=== PATIENT | male | born 2005 | race Caucasian/White ===

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

== ENCOUNTER 2023-02-26 19:07 | Emergency (ER) | payer BC, OTHER ==
[~2023-02-26] VITALS: Ht 180.3 cm; Wt 84.1 kg
[2023-02-26] MEDS ORDERED: ONDANSETRON 4MG 2ML VIAL As Ordered ONE (19:32)
[2023-02-26] MEDS ORDERED: KETOROLAC 30 MG/ML 1ML VIAL As Ordered ONE (19:32)
[2023-02-26] MEDS ORDERED: NS 1,000 ML IV ONE (19:35)
[2023-02-26] MEDS ORDERED: KETOROLAC 30 MG/ML 1ML VIAL IV ONE (19:35)
[2023-02-26] MEDS ORDERED: ONDANSETRON 4MG 2ML VIAL IV ONE (19:35)
[2023-02-26] MEDS ORDERED: MORPHINE 4 MG/ML 1ML VIAL IV ONE (19:45)
[2023-02-26 19:46] LABS: BASO % 0.5 % (0.0-1.0); EOS # 0.1 10^3/uL (0.0-0.5); EOS % 0.8 % (0.0-3.0); HEMATOCRIT 43.5 % (42.0-52.0); HEMOGLOBIN 15.8 g/dl (13.5-17.5); LYMPH # 2.4 10^3/uL (1.5-5.0); LYMPH % 31.8 % (24.0-44.0); MEAN CORPUSCULAR HEMOGLOBIN 32.6 pg (27.0-33.0); MEAN CORPUSCULAR HGB CONC 36.3 g/dl (32.0-36.5); MEAN CORPUSCULAR VOLUME 89.9 fl (80.0-96.0); MONO # 0.7 10^3/uL (0.0-0.8); NEUTROPHILS # 4.3 10^3/uL (1.5-8.5); NEUTROPHILS % 57.6 % (36.0-66.0); PLATELET COUNT, AUTOMATED 198 10^3/uL (150-450); RED BLOOD COUNT 4.84 10^6/uL (4.30-6.10); WHITE BLOOD COUNT 7.5 10^3/uL (4.0-10.0)
[2023-02-26 20:29] LABS: LIPASE 26 U/L (12-53)
[2023-02-26 20:31] LABS: ALBUMIN 4.9 G/DL (3.2-5.2); ALKALINE PHOSPHATASE 73 U/L (46-116); ALT/SGPT 67 U/L (7.0-40); AST/SGOT 29 U/L (<34); BILIRUBIN,DIRECT 0.5 MG/DL (<0.4); BILIRUBIN,TOTAL 1.5 MG/DL (0.3-1.2); BLOOD UREA NITROGEN 13 MG/DL (9-23); CALCIUM LEVEL 9.2 MG/DL (8.5-10.1); CARBON DIOXIDE LEVEL 24 MMOL/L (20-31); CHLORIDE LEVEL 105 MMOL/L (98-107); CREATININE FOR GFR 1.01 MG/DL (0.70-1.30); GLUCOSE, FASTING 123 MG/DL (60-100); SODIUM LEVEL 140 MMOL/L (136-145); TOTAL PROTEIN 6.9 G/DL (5.7-8.2)
[2023-02-26 21:30] VITALS: BP 130/78; TEMP 98; O2SAT 97
[2023-02-26] MEDS ORDERED: HYDR-3713 PO (22:28)
[2023-02-26] MEDS ORDERED: FLOM0.4C39 PO (22:28)
[2023-02-26] MEDS ORDERED: ONDA4TAB6 PO (22:28)
[2023-02-26] MEDS ORDERED: ONDANSETRON 4MG ORAL DISINTEGRATING TAB PO ONE (22:30)
[2023-02-26] MEDS ORDERED: TAMSULOSIN 0.4 MG CAP PO ONE (22:30)
[2023-02-26] MEDS ORDERED: NORCO 5/325MG TABLET (HOME DOSE PACK) PO ONE (22:30)
== END 2023-02-26 22:44 | disposition home or self-care (01) ==
LOC: M ED 19:07
DX: N20.1 Calculus of ureter (principal); F90.9 Attention-deficit hyperactivity disorder, unspecified type; Z88.5 Allergy status to narcotic agent
CPT/HCPCS: 74176; 76870; 80048; 80076; 81001; 83690; 85025; 93041; 93976; 96361; 96374; 96375; 99284; J1885; J2405

== ENCOUNTER 2025-03-26 21:04 | Emergency (ER) | payer BC, OTHER ==
[~2025-03-26] VITALS: Ht 180.3 cm; Wt 90.1 kg
[~2025-03-26 21:04] MED LIST: HYDR-3713 PO; ONDA-282 PO; TAMS-18 PO
[2025-03-26] MEDS: ONDANSETRON 4MG 2ML VIAL IV ONE (22:00)
[2025-03-26] MEDS: NS (Normal Saline) 0.9% 1,000 ML IV ONE (22:00)
[2025-03-26 22:08] LABS: BASO # 0.0 10^3/uL (0.0-0.2); BASO % 0.4 % (0.0-1.0); EOS # 0.0 10^3/uL (0.0-0.5); EOS % 0.4 % (0.0-3.0); LYMPH # 1.4 10^3/uL (1.5-5.0); LYMPH % 19.5 % (24.0-44.0); MONO # 0.5 10^3/uL (0.0-0.8); MONO % 6.5 % (2.0-8.0); NEUTROPHILS # 5.1 10^3/uL (1.5-8.5); NEUTROPHILS % 72.8 % (36.0-66.0); PLATELET COUNT, AUTOMATED 183 10^3/uL (150-450)
[2025-03-26 22:32] LABS: ALT/SGPT 50 U/L (7.0-40); AST/SGOT 28 U/L (<34); CALCIUM LEVEL 10.1 MG/DL (8.5-10.1); CARBON DIOXIDE LEVEL 30 MMOL/L (20-31); CHLORIDE LEVEL 98 MMOL/L (98-107); CREATININE FOR GFR 0.89 MG/DL (0.70-1.30); GLOMERULAR FILTRATION RATE > 90.0 (>60); POTASSIUM SERUM 4.5 MMOL/L (3.5-5.1); SODIUM LEVEL 140 MMOL/L (136-145)
[2025-03-27] MEDS: LIDOCAINE VISCOUS 2% SOLN 15 ML UDC PO ONE (00:25)
[2025-03-27] MEDS: FAMOTIDINE 20 MG/2 ML VIAL IVP ONE (00:25)
[2025-03-27] MEDS: HYOSCYAMINE SULFATE 0.125 MG SUBL TABLET PO ONE (00:25)
[2025-03-27] MEDS: MAALOX 30 ML SUSP *UDC PO ONE (00:25)
[2025-03-27 00:50] LABS: KETONE, URINE AUTO RFX NEGATIVE (NEGATIVE); LEUKOCYTE ESTERASE UR AUTO RFX NEGATIVE (NEGATIVE); MUCUS, URINE RFX SMALL (NEGATIVE); NITRITE, URINE AUTO RFX NEGATIVE (NEGATIVE); RBC, URINE AUTO RFX 0 /HPF (0-3); SQUAM EPITHELIAL CELL UR AURFX 0 /HPF (0-6); WBC, URINE AUTO RFX 0 /HPF (0-3)
[2025-03-27 02:00] VITALS: BP 133/80; TEMP 97.6; O2SAT 99
[2025-03-27] MEDS ORDERED: ONDA-282 PO (19:55)
[2025-03-27] MEDS ORDERED: DICY-61 PO (19:55)
== END 2025-03-27 02:03 | disposition home or self-care (01) ==
LOC: M ED 21:04
DX: R74.01 Elevation of levels of liver transaminase levels (principal); R10.9 Unspecified abdominal pain; Z87.442 Personal history of urinary calculi; N20.0 Calculus of kidney; Z88.5 Allergy status to narcotic agent
CPT/HCPCS: 74176; 76705; 80048; 80076; 81001; 83605; 83690; 85025; 87486; 87581; 87633; 87798; 96361; 96374; 96375; 99284; J1308; J2405; J3010

== ENCOUNTER 2025-03-27 11:59 | Emergency (ER) | payer BC, OTHER ==
[~2025-03-27] VITALS: Ht 180.3 cm; Wt 89.1 kg
[2025-03-27] MEDS: KETOROLAC 30 MG/ML 1 ML VIAL IV ONE (14:24)
[2025-03-27] MEDS: NS (Normal Saline) 0.9% 1,000 ML IV ONE (14:24)
[2025-03-27] MEDS: ONDANSETRON 4MG 2ML VIAL IV ONE (14:24)
[2025-03-27 14:39] LABS: BASO # 0.0 10^3/uL (0.0-0.2); BASO % 0.1 % (0.0-1.0); EOS # 0.0 10^3/uL (0.0-0.5); EOS % 0.1 % (0.0-3.0); LYMPH # 0.9 10^3/uL (1.5-5.0); LYMPH % 11.7 % (24.0-44.0); MONO # 0.6 10^3/uL (0.0-0.8); MONO % 7.1 % (2.0-8.0); NEUTROPHILS # 6.5 10^3/uL (1.5-8.5); NEUTROPHILS % 80.8 % (36.0-66.0); PLATELET COUNT, AUTOMATED 185 10^3/uL (150-450)
[2025-03-27 15:05] LABS: ALT/SGPT 44 U/L (7.0-40); AST/SGOT 23 U/L (<34); CALCIUM LEVEL 9.8 MG/DL (8.5-10.1); CARBON DIOXIDE LEVEL 27 MMOL/L (20-31); CHLORIDE LEVEL 101 MMOL/L (98-107); CREATININE FOR GFR 0.85 MG/DL (0.70-1.30); GLOMERULAR FILTRATION RATE > 90.0 (>60); POTASSIUM SERUM 4.3 MMOL/L (3.5-5.1); SODIUM LEVEL 140 MMOL/L (136-145)
[2025-03-27] MEDS: HYDROMORPHONE HCL 0.5 MG/0.5 ML SYRINGE IV ONE (16:00)
[2025-03-27 16:16] LABS: APPEARANCE, URINE CLEAR (CLEAR); BACTERIA, URINE AUTO NEGATIVE (NEGATIVE); BILIRUBIN, URINE AUTO NEGATIVE (NEGATIVE); BLOOD, URINE BLOOD NEGATIVE (NEGATIVE); GLUCOSE, URINE (UA) AUTO NEGATIVE (NEGATIVE); KETONE, URINE AUTO TRACE mg/dL (NEGATIVE); LEUKOCYTE ESTERASE, URINE AUTO NEGATIVE (NEGATIVE); MUCUS, URINE MODERATE (NEGATIVE); NITRITE, URINE AUTO NEGATIVE (NEGATIVE); PROTEIN, URINE AUTO 1+ mg/dL (NEGATIVE); RBC, URINE AUTO 1 /HPF (0-3); SPECIFIC GRAVITY URINE AUTO 1.027 (1.002-1.035); SQUAMOUS EPITHELIAL CELL UR AU 0 /HPF (0-6); UROBILINOGEN, URINE AUTO 0.2 mg/dL (0.0-2.0); WBC, URINE AUTO 1 /HPF (0-3)
[2025-03-27] MEDS: HALOPERIDOL LACTATE 5 MG/ML VIAL IV ONE (18:00)
[2025-03-27 18:20] LABS: AMPHETAMINES LEVEL URINE NEGATIVE (NEGATIVE); BARBITURATES URINE NEGATIVE (NEGATIVE); BENZODIAZEPINES URINE NEGATIVE (NEGATIVE); CANNABINOIDS URINE NEGATIVE (NEGATIVE); COCAINE METABOLITE URINE NEGATIVE (NEGATIVE); METHADONE URINE NEGATIVE (NEGATIVE); OPIATES URINE NEGATIVE (NEGATIVE); PHENCYCLIDINE URINE NEGATIVE (NEGATIVE)
[2025-03-27] MEDS: DICYCLOMINE INJ 20 MG/2 ML IM ONE (19:19)
[2025-03-27] MEDS ORDERED: DICY-61 PO (19:55)
[2025-03-27] MEDS ORDERED: ONDA-282 PO (19:55)
[2025-03-27 20:00] VITALS: BP 126/82; TEMP 97.7; O2SAT 97
== END 2025-03-27 20:18 | disposition home or self-care (01) ==
LOC: M ED 11:59
DX: R10.9 Unspecified abdominal pain (principal); Z88.5 Allergy status to narcotic agent
CPT/HCPCS: 80048; 80076; 80307; 81001; 83605; 83690; 85025; 96372; 96374; 96375; 99285; J0500; J1171; J1885; J2405

== ENCOUNTER → 2025-03-29 | Outpatient (REF) | payer OTHER ==
[~2025-03-29] MED LIST changes: +DICY-61 PO
[2025-03-29 22:48] LABS: HEPATITIS C VIRUS ABY INDEX < 0.02 INDEX (<0.8)
[2025-03-29 23:01] LABS: ALT/SGPT 41 U/L (7.0-40); AST/SGOT 28 U/L (<34)
== END ==
LOC: M LAB REF 21:11
PROVIDERS: ATTEND Physician Assistant Medical
DX: R16.0 Hepatomegaly, not elsewhere classified (principal)

== ENCOUNTER → 2025-03-30 | Outpatient (CLI) | payer BC | LOC: M RAD 06:20 | PROVIDERS: ATTEND Physician Assistant Medical | DX: R16.0 Hepatomegaly, not elsewhere classified (principal); R94.5 Abnormal results of liver function studies; R10.9 Unspecified abdominal pain; K76.0 Fatty (change of) liver, not elsewhere classified ==

== ENCOUNTER → 2025-04-01 | Outpatient (CLI) | payer BC ==
[2025-04-01 18:40] LABS: ALT/SGPT 38.0 U/L (7.0-40); AST/SGOT 21.0 U/L (<34)
== END ==
LOC: M WUC 12:58
PROVIDERS: ATTEND Internal Medicine Gastroenterology
DX: R94.5 Abnormal results of liver function studies (principal); R10.9 Unspecified abdominal pain

== ENCOUNTER → 2025-04-02 | Outpatient (REF) | payer BC | LOC: M LAB REF 19:41 | PROVIDERS: ATTEND Physician Assistant | DX: Z79.899 Other long term (current) drug therapy (principal) ==